=== PATIENT | female | born 1960 | race Asian ===

== ENCOUNTER → 2020-11-25 09:14 | Outpatient (CLI) | payer OTHER, SELFPAY ==
[2020-11-25 09:40] LABS: Add Manual Diff / Slide Review NO; Basophils Absolute Auto 100 /uL (0-100); Eosinophils Absolute Auto 100 /uL (0-450); Eosinophils Percent Auto 2.6 % (2-4); Hematocrit 42.2 % (36-46); Hemoglobin 14.1 g/dL (12.0-16.0); Lymphocytes Absolute Auto 2200 /uL (1100-4500); Lymphocytes Percent Auto 39.1 % (25-40); Mean Corpuscular HGB Conc 33.5 % (30-36); Mean Corpuscular Hemoglobin 28.6 PG (26-34); Mean Corpuscular Volume 85.3 fL (80-100); Monocytes Absolute Auto 400 /uL (0-900); Monocytes Percent Auto 7.2 % (3-14); Neutrophils Absolute Auto 2800 /uL (1500-7000); Neutrophils Percent Auto 50.1 % (50-75); Platelet Count 290 X10^3/uL (150-400); Red Blood Cell Count 4.95 X10^6/uL (4.0-5.2); Red Cell Distribution Width 13.6 % (11.6-14.8); White Blood Cell Count 5.6 X10^3/uL (4.5-11.0)
[2020-11-25 09:46] LABS: Hemoglobin A1C% w Est Avg Glu 6.4 % (4.0-6.0)
[2020-11-25 10:21] LABS: Alanine Aminotransferase 32 IU/L (<35); Albumin 4.8 g/dL (3.5-5.0); Albumin Globulin Ratio 1.3 (1.0-2.8); Alkaline Phosphatase 65 U/L (38-126); Aspartate Aminotransferase 36 IU/L (14-36); BUN Creatinine Ratio 15.9 (6-22); Bilirubin Total 0.8 mg/dL (0.2-1.3); Blood Urea Nitrogen 10 mg/dL (7-17); Calcium 9.3 mg/dL (8.4-10.2); Carbon Dioxide 33 mmol/L (22-32); Chloride 104 mmol/L (98-107); Cholesterol 219 mg/dL (140-199); Estimated Glomerular Filt Rate > 60.0 mL/min (>60); Globulin 3.8 g/dL (1.7-4.1); Glucose 113 mg/dL (70-100); HEMOLYSIS < 15 (0-50); Potassium 4.1 mmol/L (3.4-5.1); Sodium 139 mmol/L (137-145); Total Protein 8.6 g/dL (6.3-8.2); Triglycerides 96 mg/dL (35-150)
[2020-11-25 10:30] LABS: HDL Cholesterol 125 mg/dL (40-60); LDL Cholesterol Calculated 75 mg/dL (<100)
[2020-11-25 10:53] LABS: TSH w/ Reflex to FT4 1.53 uIU/mL (0.47-4.68)
[2020-11-25 11:09] LABS: Vitamin B12 788 pg/mL (239-931)
== END ==
PROVIDERS: PCP Family Medicine; Referring Provider Family Medicine; Visit Provider Family Medicine
DX: E78.5 Hyperlipidemia, unspecified (principal); I10 Essential (primary) hypertension; R20.2 Paresthesia of skin
CPT/HCPCS: 36415; 80053; 80061; 82607; 83036; 84443; 85025

== ENCOUNTER → 2020-12-01 16:32 | Outpatient (CLI) | payer OTHER, SELFPAY ==
--- NOTE | 2020-12-01 16:33 | DI.CT.S_ITS ---
PROCEDURE: CT HEAD/BRAIN WO/W CON INDICATIONS: Right-sided paresthesia, ear pain with hearing loss, subject TECHNIQUE: 4.5 mm thick angled axial sections acquired from the foramen magnum to the vertex before and after the administration of intravenous contrast, with coronal and sagittal reformats. For radiation dose reduction, the following was used: automated exposure control, adjustment of mA and/or kV according to patient size. COMPARISON: None. FINDINGS: Image quality: Excellent. CSF Spaces: Basal cisterns are patent. No extra-axial fluid collections. Ventricles are normal in size and shape. Brain: No midline shift. No intracranial bleeds or masses. No abnormal intracranial enhancement. Whiting-white interface appears normal. Skull and face: Calvarium and visualized facial bones appear intact, without suspicious lesions. Sinuses: Visualized sinuses and mastoids are clear. IMPRESSION: Unremarkable intracranial CT study, performed without and with contrast. If it would be helpful for clinical management decision making in this patient with this given history, please consider a dedicated brain MRI IAC protocol (without and with contrast) for further evaluation (assuming that there is no contraindication). Dictated by: Baljinder Mariscal M.D. on 12/01/2020 at 16:35 Approved by: Baljinder Mariscal M.D. on 12/01/2020 at 16:36
== END ==
PROVIDERS: PCP Family Medicine; Referring Provider Family Medicine; Visit Provider Family Medicine
DX: R20.2 Paresthesia of skin (principal); H92.09 Otalgia, unspecified ear; I10 Essential (primary) hypertension; E78.5 Hyperlipidemia, unspecified
CPT/HCPCS: 70470; Q9967

== ENCOUNTER → 2022-01-18 15:13 | Outpatient (CLI) | payer OTHER, SELFPAY ==
[2022-01-18 15:56] LABS: Add Manual Diff / Slide Review NO; Basophils Absolute Auto 0 /uL (0-100); Basophils Percent Auto 0.5 % (0-2); Eosinophils Absolute Auto 200 /uL (0-450); Eosinophils Percent Auto 2.4 % (2-4); Hematocrit 38.4 % (36-46); Hemoglobin 13.3 g/dL (12.0-16.0); Lymphocytes Absolute Auto 2800 /uL (1100-4500); Lymphocytes Percent Auto 42.8 % (25-40); Mean Corpuscular HGB Conc 34.7 % (30-36); Mean Corpuscular Volume 83.6 fL (80-100); Monocytes Absolute Auto 500 /uL (0-900); Monocytes Percent Auto 7.6 % (3-14); Neutrophils Absolute Auto 3100 /uL (1500-7000); Neutrophils Percent Auto 46.7 % (50-75); Platelet Count 271 X10^3/uL (150-400); Red Blood Cell Count 4.59 X10^6/uL (4.0-5.2); Red Cell Distribution Width 13.5 % (11.6-14.8); White Blood Cell Count 6.6 X10^3/uL (4.5-11.0)
[2022-01-18 16:33] LABS: Alanine Aminotransferase 30 IU/L (<35); Albumin 4.8 g/dL (3.5-5.0); Albumin Globulin Ratio 1.4 (1.0-2.8); Alkaline Phosphatase 54 U/L (38-126); Aspartate Aminotransferase 27 IU/L (14-36); BUN Creatinine Ratio 23.7 (6-22); Bilirubin Total 0.6 mg/dL (0.2-1.3); Blood Urea Nitrogen 14 mg/dL (7-17); Calcium 9.3 mg/dL (8.4-10.2); Carbon Dioxide 27 mmol/L (22-32); Chloride 104 mmol/L (98-107); Cholesterol 225 mg/dL (140-199); Estimated Glomerular Filt Rate > 60.0 mL/min (>60); Globulin 3.4 g/dL (1.7-4.1); Glucose 156 mg/dL (80-110); HEMOLYSIS < 15 (0-50); Hemoglobin A1C% w Est Avg Glu 6.8 % (4.0-6.0); Potassium 3.8 mmol/L (3.4-5.1); Sodium 139 mmol/L (137-145); Total Protein 8.2 g/dL (6.3-8.2); Triglycerides 153 mg/dL (35-150); Uric Acid 5.2 mg/dL (2.5-6.2)
[2022-01-18 17:04] LABS: Thyroid Stimulating Hormone 1.96 uIU/mL (0.47-4.68)
[2022-01-18 17:12] LABS: HDL Cholesterol 128 mg/dL (40-60)
[2022-01-18 17:14] LABS: LDL Cholesterol Calculated 66 mg/dL (<100)
== END ==
PROVIDERS: PCP Family Medicine; Referring Provider Family Medicine; Visit Provider Family Medicine
DX: E78.2 Mixed hyperlipidemia (principal); I10 Essential (primary) hypertension; R73.03 Prediabetes; Z00.00 Encounter for general adult medical examination without abnormal findings
CPT/HCPCS: 36415; 80053; 80061; 83036; 84443; 84550; 85025

== ENCOUNTER → 2022-03-06 15:11 | Outpatient (CLI) | payer OTHER, SELFPAY ==
--- NOTE | 2022-03-07 13:24 | DIAB.MNT ---
Initial Diabetes Medical Nutrition Therapy Assessment Name: Yue Espinoza Date: 03/07/22 Time: 330-430p Dx: Type II Diabetes Provider: [facility] Preferred Learning Style: Listening, watching, reading, hands-on Yue presents today with her daughter, Gail. Panamanian is Yue's second language. Though she seems to understand the majority of education in Panamanian, her daughter helped translate certain pieces in Tagalog. Yue has been newly dx with T2DM with a HgA1c of 6.8%. Has started Metformin 500 mg BID. Denies any FH of DM. States she would like to focus on diet today. Has cut rice portion down to 1/2 c, though endorses feeling very hungry from this reduction. Limited vegetables in her diet and often 2x portion of protein. States she use to eat 2c of rice at each meal. Has had numbness/tingling in arms for a long time. States it has seemingly improved since taking Metformin. Diet Recall: 6a: 4x white bread with cheese or egg or PB ; 1c fried rice ; 1 sweet potato +/- banana coffee with 1 tsp vanilla creamer and 1 tsp honey 10a: 2x white bread with egg or cheese whiz or PB ; sweet potato 12p: 1/2c rice with 2 dumpling and PRo +/- veggies 7p: 1/2c rice, PRO x 8oz 9p: 6 crackers Beverages; 32-40oz water, 1-2c coffee, 1tsp honey with apple cider vinegar Anthropometrics: Ht: 4'9 Wt: 160.6# last PCP visit Weight history: endorses gaining over 10# in the last year Physical Activity: Reports very sedentary job. No program in place. Self-Monitoring Blood Glucose: Only FBG for review. All in goal. States she does not trust the results since they are all normal. Purchased OTC meter, paying out of pocket for supplies. BG likely improved with Metformin and now in goal. Date Pre Post Pre Post Pre Post HS 02/28 92 03/01 96 03/02 83 03/03 88 03/04 95 03/05 90 03/06 86 Diabetes Medications: Metformin 500mg BID Pertinent Labs: HgA1c 6.8% 01/2022 Past Medical History: (Last Updated 02/13/22 @ 17:27 by Elian Burgos, DO) Ear pain, right Hyperlipidemia Hypertension Paresthesia Prediabetes Preventative health care Type 2 diabetes mellitus Nutrition Rx: 1200-1300kcals ; Carbohydrates: Daily: 130g Meal:30-45g Snack:15-30g Nutrition Diagnosis: - Excessive CHO intake r/t nutrition knowledge deficit aeb diet recall indicating some meals >45g CHO - Physical inactivity r/t sedentary job and stage of change aeb pt report - Inadequate fiber intake r/t limited whole grains/vegetables in diet aeb diet recall Intervention: This participant was very receptive. Provided appropriate educational handouts. Discussed the following topics: Completed intake assessment. Discussed barriers to care. Pathophysiology of T2DM HgA1c, its correlation to blood glucose numbers Importance of self-monitoring, how often, and when to check. Suggested checking at different times to evaluate meals, encouraged getting rx for meter and supplies to make them more affordable and to have a reliable meter Plate Method, impact of macronutrients on blood sugar, meal timing, carbohydrate counting, pairing macronutrients and spreading out carbohydrates for better blood glucose management Recommended servings for carbohydrates at meals and snacks Brainstormed appropriate meal plan based on food preferences Role of physical activity and following guidelines for safety Created SMART goals for patient self-care and success. Goals: Ask PCP for meter and supplies rx Check a few 1-2 hr pc readings for review Try brown rice Follow-up: LINDA RIZO follow-up in 2-3 weeks. Will review nutrition and meal plan in more detail and exercise at next visit. Ally Ron RDN, STACEYES Certified Diabetes Care and Cook House Supervisor P: [phone] Thank you for this referral
== END ==
PROVIDERS: PCP Family Medicine; Referring Provider Family Medicine; Visit Provider Family Medicine
DX: E11.9 Type 2 diabetes mellitus without complications (principal); Z79.84 Long term (current) use of oral hypoglycemic drugs; Z71.3 Dietary counseling and surveillance
CPT/HCPCS: 97802

== ENCOUNTER → 2022-05-17 16:48 | Outpatient (CLI) | payer OTHER, SELFPAY ==
[2022-05-17 18:14] LABS: Alanine Aminotransferase 22 IU/L (<35); Albumin 4.8 g/dL (3.5-5.0); Albumin Globulin Ratio 1.4 (1.0-2.8); Alkaline Phosphatase 57 U/L (38-126); Aspartate Aminotransferase 26 IU/L (14-36); BUN Creatinine Ratio 24.6 (6-22); Bilirubin Total 0.8 mg/dL (0.2-1.3); Blood Urea Nitrogen 14 mg/dL (7-17); Calcium 9.1 mg/dL (8.4-10.2); Carbon Dioxide 26 mmol/L (22-32); Chloride 103 mmol/L (98-107); Estimated Glomerular Filt Rate > 60 mL/min (>60); Globulin 3.5 g/dL (1.7-4.1); Glucose 95 mg/dL (80-110); HEMOLYSIS < 15 (0-50); Potassium 3.8 mmol/L (3.4-5.1); Sodium 139 mmol/L (137-145); Total Protein 8.3 g/dL (6.3-8.2)
== END ==
PROVIDERS: PCP Family Medicine; Referring Provider Family Medicine; Visit Provider Family Medicine
DX: E11.9 Type 2 diabetes mellitus without complications (principal); Z00.00 Encounter for general adult medical examination without abnormal findings
CPT/HCPCS: 36415; 80053; 83036

== ENCOUNTER → 2022-08-09 08:27 | Outpatient (CLI) | payer OTHER, SELFPAY ==
--- NOTE | 2022-08-09 08:29 | DI.MG.S_ITS ---
BILATERAL DIGITAL SCREENING MAMMOGRAM 3D/2D WITH CAD: 08/09/2022 CLINICAL: Routine screening. No prior exams were available for comparison. There are scattered areas of fibroglandular density in both breasts (category b / 25%-50% glandular tissue). Current study was also evaluated with a Computer Aided Detection (CAD) system. No significant masses, calcifications, or other findings are seen in either breast. IMPRESSION: NEGATIVE There is no mammographic evidence of malignancy. A 1 year screening mammogram is recommended. Based on the Tyrer Cuzick model (a risk assessment model) the patient's lifetime risk is 6.2% and her 10 year risk is 2.5%. According to the ACR, ACS, and NCCN guidelines, an annual breast MRI exam along with mammogram is recommended if the patient's lifetime risk is 20% or greater. This exam was interpreted at Station ID: [id number]. NOTE: For mammograms, a report in lay terms will be sent to the patient. Approximately 15% of breast malignancies will not be visualized mammographically. In the management of a palpable breast mass, a negative mammogram must not discourage biopsy of a clinically suspicious lesion. Electronically Signed By: William wang/cristiano:08/09/2022 12:13:53 letter sent: Normal Exam ACR BI-RADS Category 1: Negative [id number]
== END ==
PROVIDERS: PCP Family Medicine; Referring Provider Family Medicine; Visit Provider Family Medicine
DX: Z12.31 Encounter for screening mammogram for malignant neoplasm of breast (principal)
CPT/HCPCS: 77063; 77067

== ENCOUNTER → 2023-01-20 16:45 | Outpatient (CLI) | payer OTHER, SELFPAY ==
[2023-01-20 18:10] LABS: Hemoglobin A1C% w Est Avg Glu 6.4 % (4.0-6.0)
[2023-01-20 18:14] LABS: Alanine Aminotransferase 25 IU/L (<35); Albumin 4.5 g/dL (3.5-5.0); Albumin Globulin Ratio 1.3 (1.0-2.8); Alkaline Phosphatase 42 U/L (38-126); Aspartate Aminotransferase 27 IU/L (14-36); BUN Creatinine Ratio 15.6 (6-22); Bilirubin Total 0.5 mg/dL (0.2-1.3); Blood Urea Nitrogen 12 mg/dL (7-17); Calcium 9.4 mg/dL (8.4-10.2); Carbon Dioxide 28 mmol/L (22-32); Chloride 101 mmol/L (98-107); Estimated Glomerular Filt Rate > 60 mL/min (>60); Globulin 3.5 g/dL (1.7-4.1); Glucose 112 mg/dL (80-110); HEMOLYSIS < 15 (0-50); Sodium 137 mmol/L (137-145)
== END ==
PROVIDERS: PCP Family Medicine; Referring Provider Family Medicine; Visit Provider Family Medicine
DX: E11.9 Type 2 diabetes mellitus without complications (principal); I10 Essential (primary) hypertension; Z00.00 Encounter for general adult medical examination without abnormal findings
CPT/HCPCS: 36415; 80053; 83036

== ENCOUNTER → 2023-11-22 09:01 | Outpatient (CLI) | payer OTHER, SELFPAY ==
[2023-11-22 09:58] LABS: Add Manual Diff / Slide Review NO; Basophils Absolute Auto 0 /uL (0-100); Basophils Percent Auto 0.6 % (0-2); Eosinophils Absolute Auto 100 /uL (0-450); Eosinophils Percent Auto 1.6 % (2-4); Hematocrit 37.5 % (36-46); Hemoglobin 12.6 g/dL (12.0-16.0); Lymphocytes Absolute Auto 2400 /uL (1100-4500); Lymphocytes Percent Auto 42.3 % (25-40); Mean Corpuscular HGB Conc 33.7 % (30-36); Mean Corpuscular Hemoglobin 28.6 PG (26-34); Monocytes Absolute Auto 400 /uL (0-900); Monocytes Percent Auto 7.5 % (3-14); Neutrophils Absolute Auto 2800 /uL (1500-7000); Platelet Count 293 X10^3/uL (150-400); Red Blood Cell Count 4.41 X10^6/uL (4.0-5.2); Red Cell Distribution Width 13.5 % (11.6-14.8); White Blood Cell Count 5.8 X10^3/uL (4.5-11.0)
[2023-11-22 10:21] LABS: Hemoglobin A1C% w Est Avg Glu 6.5 % (4.0-6.0)
[2023-11-22 11:08] LABS: Alanine Aminotransferase 31 IU/L (<35); Albumin 4.6 g/dL (3.5-5.0); Albumin Globulin Ratio 1.2 (1.0-2.8); Alkaline Phosphatase 42 U/L (38-126); Aspartate Aminotransferase 29 IU/L (14-36); BUN Creatinine Ratio 19.4 (6-22); Bilirubin Total 0.6 mg/dL (0.2-1.3); Blood Urea Nitrogen 13 mg/dL (7-17); Calcium 9.8 mg/dL (8.4-10.2); Carbon Dioxide 30 mmol/L (22-32); Chloride 102 mmol/L (98-107); Cholesterol 194 mg/dL (140-199); Estimated Glomerular Filt Rate > 60 mL/min (>60); Globulin 3.7 g/dL (1.7-4.1); Glucose 103 mg/dL (80-110); HDL Cholesterol 83 mg/dL (40-60); HEMOLYSIS < 15 (0-50); LDL Cholesterol Calculated 83 mg/dL (<100); Potassium 4.1 mmol/L (3.4-5.1); Sodium 139 mmol/L (137-145); Total Protein 8.3 g/dL (6.3-8.2); Triglycerides 140 mg/dL (35-150); Uric Acid 6.7 mg/dL (2.5-6.2)
== END ==
LOC: LAB 09:02
PROVIDERS: PCP Family Medicine; Referring Provider Family Medicine; Visit Provider Family Medicine
DX: E11.9 Type 2 diabetes mellitus without complications (principal); E78.5 Hyperlipidemia, unspecified; I10 Essential (primary) hypertension
CPT/HCPCS: 36415; 80053; 80061; 83036; 84550; 85025

== ENCOUNTER → 2024-03-20 09:15 | Outpatient (CLI) | payer OTHER, SELFPAY ==
[2024-03-20 10:25] LABS: Hemoglobin A1C% w Est Avg Glu 6.1 % (4.0-6.0)
[2024-03-20 10:30] LABS: Alanine Aminotransferase 34 IU/L (<35); Albumin 4.8 g/dL (3.5-5.0); Albumin Globulin Ratio 1.4 (1.0-2.8); Alkaline Phosphatase 50 U/L (38-126); Aspartate Aminotransferase 29 IU/L (14-36); BUN Creatinine Ratio 21.2 (6-22); Bilirubin Total 0.7 mg/dL (0.2-1.3); Blood Urea Nitrogen 14 mg/dL (7-17); Calcium 9.4 mg/dL (8.4-10.2); Carbon Dioxide 31 mmol/L (22-32); Chloride 104 mmol/L (98-107); Estimated Glomerular Filt Rate > 60 mL/min (>60); Globulin 3.5 g/dL (1.7-4.1); Glucose 109 mg/dL (80-110); HEMOLYSIS < 15 (0-50); Potassium 4.6 mmol/L (3.4-5.1); Sodium 140 mmol/L (137-145); Total Protein 8.3 g/dL (6.3-8.2); Uric Acid 6.3 mg/dL (2.5-6.2)
== END ==
PROVIDERS: PCP Family Medicine; Referring Provider Family Medicine; Visit Provider Family Medicine
DX: E11.9 Type 2 diabetes mellitus without complications (principal); E78.5 Hyperlipidemia, unspecified; I10 Essential (primary) hypertension
CPT/HCPCS: 36415; 80053; 83036; 84550

== ENCOUNTER → 2024-08-05 09:02 | Outpatient (CLI) | payer OTHER, MEDICAID, SELFPAY ==
[2024-08-05 11:06] LABS: Creatinine Urine Random 18.59 mg/dL
[2024-08-05 11:14] LABS: Microalbumin Urine Random < 0.6 mg/dL (0-1.6)
== END ==
PROVIDERS: PCP Family Medicine; Referring Provider Family Medicine; Visit Provider Family Medicine
DX: E11.9 Type 2 diabetes mellitus without complications (principal)
CPT/HCPCS: 82043; 82570

== ENCOUNTER → 2025-01-21 09:23 | Outpatient (CLI) | payer OTHER, SELFPAY ==
[2025-01-21 10:50] LABS: Hemoglobin A1C% w Est Avg Glu 5.8 % (4.0-6.0)
[2025-01-21 11:05] LABS: Cholesterol 210 mg/dL (140-199); Triglycerides 156 mg/dL (35-150); Uric Acid 4.9 mg/dL (2.5-6.2)
[2025-01-21 11:15] LABS: HDL Cholesterol 108 mg/dL (40-60); LDL Cholesterol Calculated 71 mg/dL (<100)
== END ==
PROVIDERS: PCP Family Medicine; Referring Provider Family Medicine; Visit Provider Family Medicine
DX: M1A.00X0 Idiopathic chronic gout, unspecified site, without tophus (tophi) (principal); E11.9 Type 2 diabetes mellitus without complications; E78.2 Mixed hyperlipidemia; I10 Essential (primary) hypertension
CPT/HCPCS: 36415; 80061; 83036; 84550

== ENCOUNTER → 2025-02-12 09:13 | Outpatient (CLI) | payer OTHER, SELFPAY ==
--- NOTE | 2025-02-12 09:14 | DI.MG.S_ITS ---
MM screening mammo BI: 02/12/2025. BI-RADS: 1 CLINICAL: 64-year old female for bilateral screening mammogram. Tyrer-Cuzick lifetime risk of 6.6%. Current reported family history of breast cancer: sister. PRIOR EXAMS 08/09/2022. MAMMOGRAPHY TECHNIQUE: 2D and 3D (tomosynthesis) digital mammographic views obtained, with additional images as needed for full coverage. Current study was also evaluated with a Computer Aided Detection (CAD) system. DENSITY B. There are scattered areas of fibroglandular density. MAMMOGRAPHY FINDINGS Bilateral: Typically-benign vascular calcifications noted. No suspicious mass, asymmetry, microcalcification, or other abnormality seen. No significant change from comparison. IMPRESSION: * No evidence of malignancy. RECOMMENDATIONS Bilateral * Annual screening mammography. OVERALL ASSESSMENT CATEGORY BI-RADS-1: Negative. The [employer] recommends annual screening mammography beginning at age 40 for women with average risk of breast cancer. ELECTRONICALLY SIGNED: Sagrario Ko M.D. on 02/14/2025 at 12:06:48 PM PT Interpreting Station ID: [id number]
== END ==
LOC: MAMMO 09:14
PROVIDERS: PCP Family Medicine; Referring Provider Family Medicine; Visit Provider Family Medicine
DX: Z12.31 Encounter for screening mammogram for malignant neoplasm of breast (principal); Z80.3 Family history of malignant neoplasm of breast
CPT/HCPCS: 77063; 77067

== ENCOUNTER 2025-04-14 07:10 | Day surgery (SDC) | payer OTHER, SELFPAY ==
--- NOTE | 2025-04-14 | PATH_ITS ---
[facility] Accession Number: [id number] No. of containers..01 Tissue . 01 Material submitted: . colon - TRANSVERSE POLYP . 01 Diagnosis: A: TRANSVERSE COLON, POLYPECTOMY: Tubular adenoma. [facility] 04/20/2025 1457 Local . 01 Electronically signed: . Ron Loya MD, Pathologist NPI- [id number] . 01 Gross description: . Received in formalin with two identifiers and transverse polyp, are three veronica soft tissue fragments 0.3 to 0.6 cm in greatest dimension. Submitted in cassette A1. ([id number]) /JEM 04/16/2025 2304 Local . 01 Pathologist provided ICD-10: Z12.11 . 01 CPT . 924118 Specimen Comment: A courtesy copy of this report has been sent to [phone] Performed at: [address] [facility] [id number] MD Dino Hunter MD Phone: [phone]
--- NOTE | 2025-04-14 07:38 | PM.HP.IH.1 ---
History of Present Illness History of Present Illness Date Patient Seen: 04/14/25 Time Patient Seen: 07:38 Chief complaint: SDC Narrative: Yue is a 64-year-old woman presenting for her first screening colonoscopy. No family history of colon. [facility] Medical History (Updated 04/14/25 @ 07:39 by Anthony Rodriguez MD) Well adult exam Allergic conjunctivitis Chronic sinus complaints Gout Insomnia Sleep apnea in adult Well adult health check Type 2 diabetes mellitus Prediabetes Preventative health care Ear pain, right Paresthesia Hyperlipidemia Hypertension Social History alcohol intake: never substance use type: does not use Meds Home Medications and Allergies Home Medications ?Medication ?Instructions ?Recorded ?Confirmed ?Type blood sugar diagnostic (OneTouch #50 ea 07/15/24 01/28/25 Rx Verio test strips) blood-glucose meter #1 ea 07/15/24 01/28/25 Rx lancets #100 ea 07/15/24 01/28/25 Rx allopurinol 100 mg tablet 100 mg PO DAILY #90 tabs 02/14/25 Rx amlodipine 5 mg tablet 5 mg PO BEDTIME #90 tabs 02/14/25 Rx cyclobenzaprine 10 mg tablet 10 mg PO TID PRN muscle spasm #90 02/14/25 Rx tabs ketorolac 0.5 % eye drops (Acular) 2 drp EYE-BOTH Q8H PRN itching #10 02/14/25 Rx mL losartan 50 mg tablet 50 mg PO DAILY #90 tabs 02/14/25 Rx metformin 500 mg tablet See Rx Instructions .Route 02/14/25 Rx .COMPLEX #180 tabs simvastatin 20 mg tablet See Rx Instructions .Route 02/14/25 Rx .COMPLEX #90 tabs trazodone 100 mg tablet 50 mg (1/2 x 100 mg) PO BEDTIME 02/14/25 Rx PRN insomnia #45 tabs peg 3350-electrolytes 236 240 ml PO Q10M #4,000 mL 04/06/25 Rx gram-22.74 gram-6.74 gram-5.86 gram solution (Golytely) Allergies Allergy/AdvReac Type Severity Reaction Status Date / Time No Known Drug Allergies Allergy Verified 01/28/25 16:10 Exam Const General: No acute distress Resp Effort & Inspection: normal respiratory effort Assessment & Plan Assessment and plan (1) Colon cancer screening: Status: Acute Plan Colonoscopy Time-Based Coding :: [TOTAL MINUTES] spent with patient and on the chart (including review of chart, obtaining history, exam, reviewing outside data, placing orders, documenting exam and treatment plan, and counseling patient) on [DATE]. [employer] Document charge(s): No
[2025-04-14 07:45] VITALS: BP 151/81; PULSE 76; RESP 15; TEMP 36.8; O2SAT 96
[2025-04-14 08:19] VITALS: BP 93/57; PULSE 74; RESP 17; TEMP 36.3; O2SAT 96
--- NOTE | 2025-04-14 08:21 | PM.OP.COLON ---
Operative Date/Time/Diagnoses Date of procedure: 04/14/25 Time of procedure: 08:21 Pre-op diagnosis: Colon cancer screening Post-op diagnosis: same Procedure & Clinicians Study performed: Colonoscopy Same procedure as scheduled: Yes Surgeon: Anthony Rodriguez Procedure Notes Procedure in detail: Surgeon: nAthony Rodriguez MD Anesthesia: Deonte Camejo CABLE OPERATOR Procedure: The patient was brought to the endoscopy suite, placed in left lateral decubitus position. The patient was connected to monitoring devices. A time-out was performed. Sedation was administered. Once the patient was adequately sedated, a digital rectal exam was performed and external hemorrhoids were noted. The scope was then inserted and advanced to the cecum where the appendiceal orifice was identified and photographed. The scope was then slowly withdrawn over greater than 6 minutes. The mucosa was thoroughly inspected. There were some scattered diverticula in the right colon. There was a 5 mm polyp in the transverse colon removed with a cold snare. The scope was retroflexed in the rectum. Internal hemorrhoids were noted. The scope was straightened and removed. The patient was awakened and brought to recovery. Scope withdrawal time: 10 minutes Sedation time: 20 minutes EBL: 2 mL Findings: Right-sided diverticulosis, 5 mm transverse colon polyp and internal and external hemorrhoids Post-procedure Disposition: PACU
[2025-04-14 08:24] VITALS: BP 95/52; PULSE 70; RESP 17; O2SAT 97
[2025-04-14 08:29] VITALS: BP 98/58; PULSE 66; RESP 16; O2SAT 97
[2025-04-14 08:33] VITALS: BP 110/62; PULSE 68; RESP 12; TEMP 36.3; O2SAT 97
[2025-04-14 08:40] VITALS: BP 113/72; PULSE 70; RESP 15; O2SAT 94
== END 2025-04-14 10:27 | disposition home or self-care (01) ==
PROVIDERS: PCP Family Medicine; Referring Provider Surgery; Visit Provider Surgery
PROC: 0DJD8ZZ Inspection of Lower Intestinal Tract, Via Natural or Artificial Opening Endoscopic (ICD-10-PCS; CPT 45378; principal; 2025-04-14 08:15)
DX: Z12.11 Encounter for screening for malignant neoplasm of colon (principal); K57.30 Diverticulosis of large intestine without perforation or abscess without bleeding; K64.8 Other hemorrhoids; K64.4 Residual hemorrhoidal skin tags; D12.3 Benign neoplasm of transverse colon
CPT/HCPCS: 45385; J2704

== ENCOUNTER → 2025-07-20 09:24 | Outpatient (CLI) | payer OTHER, SELFPAY ==
[2025-07-20 11:15] LABS: Add Manual Diff / Slide Review NO; Hematocrit 38.4 % (36-46); Hemoglobin 12.9 g/dL (12.0-16.0); Lymphocytes Absolute Auto 2700 /uL (1100-4500); Mean Corpuscular HGB Conc 33.6 % (30-36); Mean Corpuscular Hemoglobin 28.3 PG (26-34); Mean Corpuscular Volume 84.5 fL (80-100); Platelet Count 268 X10^3/uL (150-400)
[2025-07-20 11:18] LABS: Alanine Aminotransferase 52 IU/L (<35); Albumin 4.9 g/dL (3.5-5.0); Albumin Globulin Ratio 1.6 (1.0-2.8); Alkaline Phosphatase 56 U/L (38-126); Blood Urea Nitrogen 14 mg/dL (7-17); Calcium 9.5 mg/dL (8.4-10.2); Carbon Dioxide 23 mmol/L (22-32); Chloride 104 mmol/L (98-107); Cholesterol 178 mg/dL (140-199); Estimated Glomerular Filt Rate > 60 mL/min (>60); Globulin 3.1 g/dL (1.7-4.1); Glucose 106 mg/dL (70-99); HDL Cholesterol 104 mg/dL (40-60); HEMOLYSIS < 15 (0-50); Potassium 4.5 mmol/L (3.4-5.1); Sodium 140 mmol/L (137-145); Total Protein 8.0 g/dL (6.3-8.2); Triglycerides 146 mg/dL (35-150)
[2025-07-20 11:29] LABS: Hemoglobin A1C% w Est Avg Glu 6.6 % (4.0-6.0)
[2025-07-20 11:46] LABS: TSH w/ Reflex to FT4 1.68 uIU/mL (0.47-4.68)
== END ==
PROVIDERS: PCP Family Medicine; Referring Provider Family Medicine; Visit Provider Family Medicine
DX: E11.9 Type 2 diabetes mellitus without complications (principal); E78.2 Mixed hyperlipidemia; I10 Essential (primary) hypertension
CPT/HCPCS: 36415; 80053; 80061; 83036; 84443; 85025